=== PATIENT | female | born 1990 | race Caucasian/White ===

== ENCOUNTER 2020-09-06 15:42 | Inpatient (IN) | payer OTHER ==
[~2020-09-06] VITALS: Ht 154.9 cm; Wt 77.1 kg
[~2020-09-06 15:42] MED LIST: ACYCLOVIR400 MG PO; COLACE 100MG C100 MG PO; FERROUS SULFAT325 MG PO; IBUPROFEN600 MG PO; PREVACID15 MG PO; ZYRTEC10 M3 PO
[2020-09-06 16:52] LABS: HEMOGLOBIN 13.8 gm/dl (12.3-15.3); RED BLOOD COUNT 5.34 M/UL (4.00-5.10); WHITE BLOOD COUNT 26.2 K/UL (4.5-11.0)
[2020-09-06 17:12] LABS: BUN/CREATININE RATIO 21 (0-10)
[2020-09-08 03:21] LABS: HEMOGLOBIN 10.8 gm/dl (12.3-15.3); RED BLOOD COUNT 4.26 M/UL (4.00-5.10); WHITE BLOOD COUNT 14.1 K/UL (4.5-11.0)
[2020-09-08] MEDS ORDERED: FLAGYL500 MG PO (15:02)
[2020-09-08] MEDS ORDERED: AUGMENTIN 875-1 EACH PO (15:02)
[2020-09-08] MEDS ORDERED: IBUPROFEN600 MG PO (15:02)
== END 2020-09-08 19:55 | disposition home or self-care (01) | DRG 744 ==
LOC: ER1 15:42 → M/S 21:52 → CDU 21:52 → M/S 23:45
PROVIDERS: Obstetrics & Gynecology; Physician Assistant Medical; ADMIT Obstetrics & Gynecology
PROC: 0UPD8HZ Removal of Contraceptive Device from Uterus and Cervix, Via Natural or Artificial Opening Endoscopic (ICD-10-PCS; 2020-09-08)
PROC: 0UDB8ZZ Extraction of Endometrium, Via Natural or Artificial Opening Endoscopic (ICD-10-PCS; principal; 2020-09-08 09:30)
DX: N73.9 Female pelvic inflammatory disease, unspecified (principal); T83.89XA Other specified complication of genitourinary prosthetic devices, implants and grafts, initial encounter; D64.9 Anemia, unspecified; E66.9 Obesity, unspecified; Z68.32 Body mass index [BMI] 32.0-32.9, adult; Z79.899 Other long term (current) drug therapy
CPT/HCPCS: 36415; 76830; 80053; 81001; 83605; 84703; 85025; 87040; 96365; 96367; 96375; 99285; J0295; J1100; J1885; J2001; J2250; J2405; J2550; J2704; J3010; J7030; J7120; Q9967; U0002

== ENCOUNTER 2020-11-18 16:00 | Emergency (ER) | payer OTHER ==
[~2020-11-18 16:00] MED LIST changes: +AUGMENTIN 875-1 EACH PO; +FLAGYL500 MG PO
[2020-11-18 18:02] LABS: HEMOGLOBIN 13.3 gm/dl (12.3-15.3); RED BLOOD COUNT 4.96 M/UL (4.00-5.10); WHITE BLOOD COUNT 8.5 K/UL (4.5-11.0)
[2020-11-18 18:26] LABS: BUN/CREATININE RATIO 24 (0-10)
[2020-11-21 18:09] LABS: CHLAMYDIA TRACHOMATIS, NAA Negative (Negative); NEISSERIA GONORRHOEAE, NAA Negative (Negative)
== END 2020-11-18 20:08 | disposition home or self-care (01) ==
LOC: ER1 16:00
PROVIDERS: Physician Assistant
DX: N93.9 Abnormal uterine and vaginal bleeding, unspecified (principal)
CPT/HCPCS: 80053; 81001; 84703; 85025; 87086; 87210; 99284; Q9967

== ENCOUNTER 2022-01-13 09:08 | Emergency (ER) | payer OTHER ==
[2022-01-13 10:13] LABS: HEMOGLOBIN 14.1 gm/dl (12.3-15.3); RED BLOOD COUNT 5.08 M/UL (4.00-5.10); WHITE BLOOD COUNT 14.6 K/UL (4.5-11.0)
[2022-01-13 13:30] LABS: BUN/CREATININE RATIO 17 (0-10)
[2022-01-13] MEDS ORDERED: BENTYL 20MG TAB20 MG PO (13:50)
[2022-01-13] MEDS ORDERED: PHENERGAN 25 MG25 M1 PO (13:50)
== END 2022-01-13 14:28 | disposition home or self-care (01) ==
LOC: ER1 09:08
PROVIDERS: Physician Assistant
DX: R19.7 Diarrhea, unspecified (principal); R11.2 Nausea with vomiting, unspecified; R10.10 Upper abdominal pain, unspecified
CPT/HCPCS: 80053; 81001; 82150; 83690; 84703; 85025; 96374; 96375; 99284; C9113; J1200; J2405; J2550; J2765; Q9967